=== PATIENT | female | born 1955 ===

== ENCOUNTER 2016-11-07 00:53 | Emergency (ER) | payer MEDICARE, OTHER ==
[2016-11-07 01:22] LABS: BASO # 0.1 K/uL (0.0-0.2); BASO % 0.5 % (0.0-2.0); EOS # 0.4 K/uL (0.0-0.7); EOS % 3.2 % (0.0-4.0); HEMATOCRIT 39.7 % (34.0-47.0); LYMPH # 6.5 K/uL (1.0-4.3); MEAN CELL VOLUME 90.2 fL (81.0-99.0); MEAN CORPUSCULAR HEMOGLOBIN 29.8 pg (27.0-31.0); MEAN PLATELET VOLUME 8.7 fL (7.2-11.7); MONO # 0.9 K/uL (0.0-0.8); MONO % 7.3 % (0.0-10.0); PLATELET COUNT 206 K/uL (130-400); RED CELL DISTRIBUTION WIDTH 13.4 % (11.5-14.5); WHITE BLOOD COUNT 12.7 K/uL (4.8-10.8)
[2016-11-07 01:44] LABS: CHLORIDE 110 mmol/L (98-107); SODIUM 143 mmol/L (132-148)
[2016-11-07 01:45] LABS: POTASSIUM 3.9 mmol/L (3.6-5.2)
[2016-11-07 01:47] LABS: ALB/GLOB RATIO 1.1 (1.0-2.1); ALKALINE PHOSPHATASE 72 U/L (38-126); ALT/SGPT 23 U/L (9-52); AST/SGOT 26 U/L (14-36); BILIRUBIN,TOTAL 0.6 mg/dL (0.2-1.3); BLOOD UREA NITROGEN 22 mg/dL (7-17); CALCIUM 9.3 mg/dl (8.6-10.4); CARBON DIOXIDE 24 mmol/L (22-30); GFR AFRICAN-AMERICAN > 60; GLUCOSE,RANDOM 127 mg/dL (65-105); TOTAL PROTEIN 7.7 g/dL (6.3-8.3)
[2016-11-07 01:55] LABS: EOSINOPHIL 3 % (0-4); NEUTROPHIL 35 % (50-75); REACTIVE LYMPHOCYTES 44 % (0-0); TOTAL CELLS COUNTED 100
[2016-11-07 04:01] VITALS: BP 131/75; PULSE 60; RESP 20; TEMP 97.6; O2SAT 100
--- NOTE | 2016-11-07 04:58 | C.PDOC ---
History Of Present Illness Patient is a 61 year old female who presents to the ER with a complaint of left sided weakness since approximately 23:30. Patient states her face was twisted at the time. Patient has a Hx of similar 1 year ago and a stroke was diagnosed at the time. Denies chest pain, SOB or slurred speech. Time Seen by Provider: 11/07/16 01:00 Chief Complaint (Nursing): Weakness/Neurological Deficit History Per: Patient History/Exam Limitations: no limitations Onset/Duration Of Symptoms: Hrs Current Symptoms Are (Timing): Still Present Activity At Onset Of Symptoms: Other (Not known) Seizure Or Post-ictal Symptoms: None Fall Associated With With Symptoms: No - Symptoms Of CVA Associated Symptoms: denies: Impaired Speech, Seizure Activity, New Vision Deficit(Left), New Vision Deficit(Right), Decreased Ability To Walk, New Confusion Character Of Deficits: Left: Weakness Recent Aspirin Use: Unknown Current Coumadin Use?: Unknown Recent Head Trauma: No Past Medical History Reviewed: Historical Data, Nursing Documentation, Vital Signs Vital Signs: Last Vital Signs Temp 97.6 F 11/07/16 03:45 Pulse 60 11/07/16 03:45 Resp 20 11/07/16 03:45 BP 131/75 11/07/16 03:45 Pulse Ox 100 11/07/16 06:32 - Medical History PMH: Anxiety, Depression, Diabetes, HTN, Hyperlipidemia, Malignancy (throat CA with chemo) Surgical History: Family History: States: Unknown Family Hx - Social History Hx Tobacco Use: No Hx Alcohol Use: No Hx Substance Use: No - Immunization History Hx Tetanus Toxoid Vaccination: No Hx Influenza Vaccination: Yes Hx Pneumococcal Vaccination: No Review Of Systems Cardiovascular: Negative for: Chest Pain Respiratory: Negative for: Shortness of Breath Neurological: Positive for: Weakness (Left sided). Negative for: Other ( Slurred speech) Physical Exam - Physical Exam Appears: Non-toxic, No Acute Distress Skin: Normal Color, Warm, Dry Head: Atraumatic, Normacephalic Eye(s): bilateral: Normal Inspection, PERRL, EOMI Oral Mucosa: Moist Chest: Symmetrical, No Tenderness Cardiovascular: Rhythm Regular, No Murmur Respiratory: Normal Breath Sounds, No Rales, No Rhonchi, No Wheezing Gastrointestinal/Abdominal: Soft, No Tenderness Neurological/Psych: Oriented x3, Normal Speech, Normal Cognition, Normal Motor, Normal Sensation, Other (Slight left facial droop) ED Course And Treatment - Laboratory Results Result Diagrams: 11/07/16 01:19 11/07/16 01:19 O2 Sat by Pulse Oximetry: 100 (room air) Pulse Ox Interpretation: Normal Progress Note: Head CT w/o contrast, EKG and CXR ordered. Aspirin administered. Against Medical Advice - AMA Patient Left Against Medical Advice: The patient declines admission to the hospital and wishes to leave the Emergency Department. This action is against my medical advice. This decision was made with informed refusal. The patient was told that admission to the hospital is necessary. Explanation of the reasons why were discussed. The risks of leaving were explained to the patient and include, but are not limited to, worsening of known or currently unknown conditions, permanent disability and from undiagnosed or untreated conditions. The patient has the capacity to make this informed decision and understands my explanation of the current medical problem and risks of leaving. The patient voluntarily accepts these risks and signed an AMA form documenting our conversation. The patient was given the opportunity to ask questions and reconsider. The patient was encouraged to return to the Emergency Department at any time for further care. NIHSS Stroke Scale - Date/Time Evaluation Performed When Was NIHSS Performed: Baseline - How Severe is the Stoke Level of Consciousness: 0=Alert LOC to Questions: 0=Both comments correct LOC to commands: 0=Obeys both correctly Best Gaze: 0=Normal Visual: 0=No visual loss Facial: 2=Partial (lower face paralysis) Motor Arm - Left: 0=No drift Motor Arm - Right: 0=No drift Motor Leg - Left: 0=No drift Motor Leg - Right: 0=No drift Limb Ataxia: 0=Absent Sensory: 0=Normal Best Language: 0=No aphasia Dysarthia: 0=Normal articulation Extinction & Inattention (Neglect): 0=Normal, no object Score: 2 Severity Of Stroke: 1-4= Minor Stroke rTPA Inclusion/Exclusion - Refusal of Treatment Patient Refused Treatment: No - Inclusion Criteria for Altepase Patient is 18 years or Older: Yes The Clinical Diagnosis of Ischemic Stroke That is Causing a Potentially Disabling Neurological Deficit: Yes Time of Onset is Well Established to be Less Than 270 Minute Before Treatment Would Begin: No Risk/Benefit Discussed With Patient/Family Member Present: No Disposition - Disposition Disposition: AGAINST MEDICAL ADVICE Disposition Time: 02:35 Condition: GUARDED - Clinical Impression Clinical Impression: Weakness, TIA (transient ischemic attack) - Scribe Statement The provider has reviewed the documentation as recorded by the Scribe Edison Cabral All medical record entries made by the Scribe were at my direction and personally dictated by me. I have reviewed the chart and agree that the record accurately reflects my personal performance of the history, physical exam, medical decision making, and the department course for this patient. I have also personally directed, reviewed, and agree with the discharge instructions and disposition.
--- NOTE | 2016-11-07 09:15 | CT ---
PROCEDURE: CT HEAD WITHOUT CONTRAST. HISTORY: r/o ICH COMPARISON: None available. TECHNIQUE: Axial computed tomography images were obtained through the head/brain without intravenous contrast. Radiation dose: Total exam DLP = 884.50 mGy-cm. This CT exam was performed using one or more of the following dose reduction techniques: Automated exposure control, adjustment of the mA and/or kV according to patient size, and/or use of iterative reconstruction technique. FINDINGS: HEMORRHAGE: No intracranial hemorrhage. BRAIN: [place]-white matter differentiation is preserved. There is no mass, mass effect or abnormal extra-axial fluid collection. VENTRICLES: The ventricles are normal in size, shape and configuration. CALVARIUM: There is no calvarial fracture or extracranial soft tissue swelling. PARANASAL SINUSES: There is moderate scattered mucoperiosteal thickening in the ethmoid air cells, mild mucosal thickening in the right inferior frontal sinus and aerosolized secretions in the right sphenoid chamber. MASTOID AIR CELLS: Unremarkable as visualized. No inflammatory changes. OTHER FINDINGS: None. IMPRESSION: No acute intracranial abnormality. A preliminary report was provided by [facility].
--- NOTE | 2016-11-07 10:06 | RAD ---
PROCEDURE: CHEST RADIOGRAPH, 1 VIEW HISTORY: r/o infiltrate COMPARISON: 12/01/2015. FINDINGS: LUNGS: The lungs are well inflated and clear. PLEURA: No pneumothorax or pleural fluid seen. CARDIOVASCULAR: Normal. OSSEOUS STRUCTURES: No significant abnormalities. VISUALIZED UPPER ABDOMEN: Normal. OTHER FINDINGS: None. IMPRESSION: No active pulmonary disease.
--- NOTE | 2016-11-10 21:36 | CARD ---
APPROVED REPORT EKG Measurement Heart [id number] MD [id number] <Conclusion> Normal sinus rhythm Normal ECG
== END 2016-11-07 04:01 | disposition left against medical advice (07) ==
LOC: C.ER 00:53 → C.6T 03:12 → UNDOADMIN 03:12 → UNDODISIN 04:00
DX: G45.9 Transient cerebral ischemic attack, unspecified (principal); R53.1 Weakness; I10 Essential (primary) hypertension; E11.9 Type 2 diabetes mellitus without complications; E78.5 Hyperlipidemia, unspecified

== ENCOUNTER 2016-12-03 13:33 | Inpatient (IN) | payer MEDICARE, OTHER ==
[2016-12-03] MEDS ORDERED: Sodium Chloride 0.9% 500 ML IV ONE ×2 (13:48→14:11)
--- NOTE | 2016-12-03 13:49 | C.PDOC ---
History Of Present Illness 61 yr old female with PMHx of diabetes, HTN, hyperlipidemia and previous stroke , brought in via BLS, presents to the ER with sudden onset of dizziness, weakness and slurred speech since 8am this morning. Patient states she was evaluated 1 month ago for similar symptoms but signed out AMA. Denies fever, pain or LOC. Time Seen by Provider: 12/03/16 13:41 Chief Complaint (Nursing): Weakness/Neurological Deficit History Per: Patient History/Exam Limitations: no limitations Onset/Duration Of Symptoms: Sudden Onset (Since 8am this morning ) Past Medical History Reviewed: Historical Data, Nursing Documentation, Vital Signs Vital Signs: Last Vital Signs Temp 98.0 F 12/04/16 07:52 Pulse 54 L 12/04/16 07:52 Resp 20 12/04/16 07:52 BP 114/63 12/04/16 07:52 Pulse Ox 99 12/04/16 07:52 - Medical History PMH: Anxiety, Depression, Diabetes, HTN, Hyperlipidemia, Malignancy (throat CA with chemo) Surgical History: Family History: States: No Known Family Hx - Social History Hx Tobacco Use: No Hx Alcohol Use: No Hx Substance Use: No - Immunization History Hx Tetanus Toxoid Vaccination: No Hx Influenza Vaccination: Yes Hx Pneumococcal Vaccination: No Review Of Systems Except As Marked, All Systems Reviewed And Found Negative. Constitutional: Positive for: Weakness, Other ((+) Slurred Speech ). Negative for: Fever Respiratory: Negative for: Shortness of Breath Neurological: Positive for: Dizziness Physical Exam - Physical Exam Appears: Non-toxic, No Acute Distress Skin: Warm, Dry, No Rash Head: Atraumatic, Normacephalic Eye(s): bilateral: Normal Inspection, PERRL, EOMI Oral Mucosa: Moist Neck: Normal, Normal ROM, Supple Chest: Symmetrical, No Tenderness Cardiovascular: Rhythm Regular, No Murmur Respiratory: Normal Breath Sounds, No Rales, No Rhonchi, No Stridor, No Wheezing Extremity: Normal ROM, No Swelling ED Course And Treatment - Laboratory Results Result Diagrams: 12/04/16 07:42 12/04/16 07:42 ECG: Interpreted By Me, Viewed By Me ECG Rhythm: Sinus Bradycardia ECG Interpretation: Normal Rate From EC (BPM) - Other Rad CXR X-Ray: Viewed By Me, Read By Radiologist Interpretation: PROCEDURE: CHEST RADIOGRAPH, 1 VIEW. HISTORY: chest pain. COMPARISON: FINDINGS: LUNGS: Poor inspiration with low lung volumes, minor crowded bronchovascular markings and mild bibasilar atelectasis. PLEURA: No apparent pneumothorax. No effusion. CARDIOVASCULAR: Heart size is upper limits of normal. OSSEOUS STRUCTURES: Minor multilevel degenerative spondylosis of the thoracic spine. VISUALIZED UPPER ABDOMEN: Normal. OTHER FINDINGS: None. IMPRESSION: Poor inspiration with low lung volumes, minor crowded bronchovascular markings and mild bibasilar atelectasis. - CT Scan/US CT - Head Other Rad Studies (CT/US): Read By Radiologist, Radiology Report Reviewed CT/US Interpretation: PROCEDURE: CT scan brain dated 12/03/2016. HISTORY: Code Stroke. COMPARISON: Comparison made with prior CT scan of the brain dated 11/07/2016 comparison also made with the prior MRA of the brain dated 03/2016. TECHNIQUE: Axial computed tomography images were obtained through the head/brain without intravenous contrast. Radiation dose: Total exam DLP = 861.51 mGy-cm. This CT exam was performed using one or more of the following dose reduction techniques: Automated exposure control, adjustment of the mA and/ or kV according to patient size, and/or use of iterative reconstruction technique. FINDINGS: HEMORRHAGE: No acute parenchymal, subarachnoid or extra- axial intracranial hemorrhage. BRAIN: No evidence of large acute infarct. . 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 VENTRICLES: Unremarkable. No hydrocephalus. CALVARIUM: Unremarkable. PARANASAL SINUSES: Unremarkable as visualized. No significant inflammatory changes. MASTOID AIR CELLS: Unremarkable as visualized. No inflammatory changes. OTHER FINDINGS: None. IMPRESSION: No acute intracranial hemorrhage. Previously noted small in the ideally wing other anterior communicating artery aneurysm is not appreciated on this exam. Note that these findings were discussed with Dr. Salcedo at approximately 220 p.m. with written down and read back verification. NIHSS Stroke Scale - Date/Time Evaluation Performed Date Performed: 12/03/16 Time Performed: 16:18 - How Severe is the Stoke Level of Consciousness: 0=Alert LOC to Questions: 0=Both comments correct LOC to commands: 0=Obeys both correctly Best Gaze: 0=Normal Visual: 0=No visual loss Facial: 1=Minor asymmetry Motor Arm - Left: 0=No drift Motor Arm - Right: 0=No drift Motor Leg - Left: 0=No drift Motor Leg - Right: 0=No drift Limb Ataxia: 0=Absent Sensory: 0=Normal Best Language: 1=Mild to moderate aphasia Dysarthia: 0=Normal articulation Extinction & Inattention (Neglect): 0=Normal, no object Score: 2 Severity Of Stroke: 1-4= Minor Stroke rTPA Inclusion/Exclusion - Refusal of Treatment Patient Refused Treatment: No - Inclusion Criteria for Altepase Patient is 18 years or Older: Yes The Clinical Diagnosis of Ischemic Stroke That is Causing a Potentially Disabling Neurological Deficit: No Time of Onset is Well Established to be Less Than 270 Minute Before Treatment Would Begin: No Risk/Benefit Discussed With Patient/Family Member Present: Yes - Exclusion Criteria for Altepase Uncontrolled Hypertension at Time of Treatment (Systolic BP above 185 or Diastolic BP above 110 mmHg): No History of: Brain Aneurysm Medical Decision Making Medical Decision Making: code stroke- PLAN: * CT - Head * CXR * EKG * Troponin * CBC * CMP * Urinalysis * Sodium Chloride IV * * 400: labs initially unremarkable. head ct neg. pt took asa today. case discussed with dr ragland. advises dose plavix. not tpa candidate. given close to 6 hr onset, h/o of aneursym, low nih. pt at first mildy hypotensive. map 55-60. la added. pt emprically covered. bedside us shows no pericardial effusion, no aaa. fluids given. pt responded to fluids. discussed with icu, requested ivf, albumin. as pt now hemodynamically stable, will place on tele. Disposition - Disposition Disposition: HOSPITALIZED Disposition Time: 05:00 Condition: STABLE - Clinical Impression Clinical Impression: Weakness, Dizziness - Scribe Statement The provider has reviewed the documentation as recorded by the Rosarioibmarjorie Perez Provider Attestation: All medical record entries made by the Saleem were at my direction and personally dictated by me. I have reviewed the chart and agree that the record accurately reflects my personal performance of the history, physical exam, medical decision making, and the department course for this patient. I have also personally directed, reviewed, and agree with the discharge instructions and disposition. Decision To Admit - Pt Status Changed To: Hospital Disposition Of: Inpatient - Admit Certification Admit to Inpatient:: After my assessment, the patient will require hospitalization for at least two midnights. This is because of the severity of symptoms shown, intensity of services needed, and/or the medical risk in this patient being treated as an outpatient. - InPatient: Physician Admission Certification: I certify that this patient requires 2 or more midnights of care for the following reason:: pt with r/o cva. - . Bed Request Type: Telemetry Admitting Physician: Sarina Smith Patient Diagnosis: Weakness, Dizziness
[2016-12-03 14:01] LABS: BASO # 0.1 K/uL (0.0-0.2); BASO % 0.7 % (0.0-2.0); EOS # 0.3 K/uL (0.0-0.7); EOS % 2.9 % (0.0-4.0); HEMOGLOBIN 13.1 g/dL (11.0-16.0); LYMPH # 3.3 K/uL (1.0-4.3); LYMPH % 33.3 % (20.0-40.0); MEAN CELL VOLUME 90.4 fL (81.0-99.0); MEAN CORPUSCULAR HEMOGLOBIN 29.6 pg (27.0-31.0); MEAN CORPUSCULAR HGB CONC 32.8 g/dL (33.0-37.0); MEAN PLATELET VOLUME 8.5 fL (7.2-11.7); MONO # 0.6 K/uL (0.0-0.8); MONO % 5.5 % (0.0-10.0); NEUT # 5.7 K/uL (1.8-7.0); NEUT % 57.6 % (50.0-75.0); RBC 4.43 Mil/uL (3.80-5.20); RED CELL DISTRIBUTION WIDTH 12.9 % (11.5-14.5)
[2016-12-03 14:07] LABS: INR 1.1; PROTHROMBIN TIME 11.9 SECONDS (9.7-12.2)
[2016-12-03 14:10] LABS: ALB/GLOB RATIO 1.1 (1.0-2.1); AST/SGOT 28 U/L (14-36); BLOOD UREA NITROGEN 24 mg/dL (7-17); GFR AFRICAN-AMERICAN > 60; GFR NON-AFRICAN AMERICAN 57
[2016-12-03 14:11] LABS: ALT/SGPT 43 U/L (9-52); CALCIUM 8.9 mg/dl (8.6-10.4); HDL CHOLESTEROL 43 mg/dL (30-70)
[2016-12-03 14:22] LABS: LDL CHOLESTEROL 68 mg/dL (0-129)
--- NOTE | 2016-12-03 14:28 | CT ---
PROCEDURE: CT scan brain dated 12/03/2016 HISTORY: Code Stroke COMPARISON: Comparison made with prior CT scan of the brain dated 11/07/2016 comparison also made with the prior MRA of the brain dated 12/02/2015. TECHNIQUE: Axial computed tomography images were obtained through the head/brain without intravenous contrast. Radiation dose: Total exam DLP = 861.51 mGy-cm. This CT exam was performed using one or more of the following dose reduction techniques: Automated exposure control, adjustment of the mA and/or kV according to patient size, and/or use of iterative reconstruction technique. FINDINGS: HEMORRHAGE: No acute parenchymal, subarachnoid or extra-axial intracranial hemorrhage. BRAIN: No evidence of large acute infarct. . 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 VENTRICLES: Unremarkable. No hydrocephalus. CALVARIUM: Unremarkable. PARANASAL SINUSES: Unremarkable as visualized. No significant inflammatory changes. MASTOID AIR CELLS: Unremarkable as visualized. No inflammatory changes. OTHER FINDINGS: None. IMPRESSION: No acute intracranial hemorrhage. 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 Salcedo at approximately 220 p.m. with written down and read back verification.
[2016-12-03] MEDS ORDERED: Sodium Chloride 0.9% 1,000 ML IV ONE (14:34)
[2016-12-03] MEDS ORDERED: Sodium Chloride 0.9% 1,000 ML ONE (14:38)
[2016-12-03] MEDS ORDERED: Piperacillin/Tazobact 3.375 gm 100 ML IVPB STA (14:40)
[2016-12-03] MEDS ORDERED: Vancomycin 1 GM 1 GM/250 ML BAG IVPB ONE (16:00)
--- NOTE | 2016-12-03 16:08 | RAD ---
PROCEDURE: CHEST RADIOGRAPH, 1 VIEW HISTORY: chest pain COMPARISON: FINDINGS: LUNGS: Poor inspiration with low lung volumes, minor crowded bronchovascular markings and mild bibasilar atelectasis. PLEURA: No apparent pneumothorax. No effusion. CARDIOVASCULAR: Heart size is upper limits of normal. OSSEOUS STRUCTURES: Minor multilevel degenerative spondylosis of the thoracic spine VISUALIZED UPPER ABDOMEN: Normal. OTHER FINDINGS: None. IMPRESSION: Poor inspiration with low lung volumes, minor crowded bronchovascular markings and mild bibasilar atelectasis.
[2016-12-03 16:12] LABS: VENOUS BLOOD GAS BASE EXCESS 1.8 mmol/L (0.0-2.0); VENOUS BLOOD GAS PCO2 53 mmHg (40-60); VENOUS BLOOD GAS PO2 24 mm/Hg (30-55); VENOUS BLOOD PH 7.34 (7.32-7.43)
[2016-12-03 16:29] LABS: SQUAMOUS EPITHIAL 14 /hpf (0-5); URINE BACTERIA OCC (<OCC); URINE BILIRUBIN NEGATIVE (NEGATIVE); URINE BLOOD NEGATIVE (NEGATIVE); URINE CLARITY Hazy (Clear); URINE COLOR Yellow (YELLOW); URINE GLUCOSE (UA) NORMAL (Normal); URINE LEUKOCYTE ESTERASE TRACE Leu/uL (Negative); URINE NITRATE NEGATIVE (NEGATIVE); URINE PROTEIN NEGATIVE (NEGATIVE); URINE UROBILINOGEN NORMAL mg/dL (0.2-1.0)
[2016-12-03] MEDS ORDERED: Albuterol HFA 90 mcg/actuation (8 g) INH PRN (19:36)
[2016-12-03] MEDS ORDERED: Oxycodone/Acetaminophen 5/325 mg Tab PO PRN (19:43)
[2016-12-03] MEDS: Promethazine DM 6.25 mg-15 mg/5 ml Syrup PO PRN (22:09)
[2016-12-04 07:54] LABS: BASO % 0.3 % (0.0-2.0); EOS # 0.3 K/uL (0.0-0.7); EOS % 3.6 % (0.0-4.0); HEMOGLOBIN 12.9 g/dL (11.0-16.0); LYMPH # 4.1 K/uL (1.0-4.3); LYMPH % 42.6 % (20.0-40.0); MEAN CELL VOLUME 90.2 fL (81.0-99.0); MEAN CORPUSCULAR HEMOGLOBIN 29.7 pg (27.0-31.0); MEAN CORPUSCULAR HGB CONC 32.9 g/dL (33.0-37.0); MEAN PLATELET VOLUME 8.8 fL (7.2-11.7); MONO # 0.5 K/uL (0.0-0.8); MONO % 5.8 % (0.0-10.0); NEUT # 4.5 K/uL (1.8-7.0); NEUT % 47.7 % (50.0-75.0); RBC 4.34 Mil/uL (3.80-5.20); RED CELL DISTRIBUTION WIDTH 13.2 % (11.5-14.5); WHITE BLOOD COUNT 9.5 K/uL (4.8-10.8)
[2016-12-04 08:23] LABS: ALBUMIN 3.7 g/dL (3.5-5.0)
[2016-12-04 08:26] LABS: AST/SGOT 22 U/L (14-36); BLOOD UREA NITROGEN 22 mg/dL (7-17); GFR AFRICAN-AMERICAN > 60; GFR NON-AFRICAN AMERICAN > 60
[2016-12-04 08:27] LABS: ALT/SGPT 36 U/L (9-52); HDL CHOLESTEROL 41 mg/dL (30-70)
[2016-12-04 08:38] LABS: LDL CHOLESTEROL 66 mg/dL (0-129)
[2016-12-04 09:08] LABS: PROLACTIN 14.6 ng/mL (3.0-18.9)
[2016-12-04 09:40] LABS: FOLATE 4.8 ng/mL
--- NOTE | 2016-12-04 09:40 | CP.PCM.HP ---
Past Patient History - Infectious Disease Hx of Infectious Diseases: None - Past Medical History & Family History Past Medical History?: Yes - Past Social History Smoking Status: Never Smoked - CARDIAC Hx Hypertension: Yes - PULMONARY Hx Respiratory Disorders: No - NEUROLOGICAL Hx Neurological Disorder: Yes HX Cerebrovascular Accident: Yes (2015) Other/Comment: brain aneurysm - HEENT Hx HEENT Problems: Yes Other/Comment: hx of throat ca - RENAL Hx Chronic Kidney Disease: No - ENDOCRINE/METABOLIC Hx Diabetes Mellitus Type 2: Yes - HEMATOLOGICAL/ONCOLOGICAL Hx Blood Disorders: Yes Hx Cancer: Yes (THROAT CA) - INTEGUMENTARY Hx Dermatological Problems: No - MUSCULOSKELETAL/RHEUMATOLOGICAL Hx Musculoskeletal Disorders: No Hx Falls: Yes - GASTROINTESTINAL Hx Gastrointestinal Disorders: No - GENITOURINARY/GYNECOLOGICAL Hx Genitourinary Disorders: No - PSYCHIATRIC Hx Anxiety: Yes Hx Depression: Yes Hx Substance Use: No - SURGICAL HISTORY Hx Surgeries: Yes Hx Section: Yes (2x) - ANESTHESIA Hx Anesthesia: Yes Hx Anesthesia Reactions: No Hx Malignant Hyperthermia: No Has any member of the family had a problem w/ anesthesia?: No Meds Allergies/Adverse Reactions: Allergies Allergy/AdvReac Type Severity Reaction Status Date / Time No Known Allergies Allergy Verified 12/03/16 13:47 Physical Exam - Constitutional Appears: Well - Head Exam Head Exam: ATRAUMATIC, NORMAL INSPECTION, NORMOCEPHALIC - Eye Exam Eye Exam: EOMI, Normal appearance, PERRL Pupil Exam: NORMAL ACCOMODATION, PERRL - ENT Exam ENT Exam: Mucous Membranes Moist, Normal Exam - Neck Exam Neck exam: Positive for: Normal Inspection - Respiratory Exam Respiratory Exam: Decreased Breath Sounds - Cardiovascular Exam Cardiovascular Exam: REGULAR RHYTHM, +S1, +S2 - GI/Abdominal Exam GI & Abdominal Exam: Diminished Bowel Sounds, Soft - Rectal Exam Rectal Exam: Deferred Results - Vital Signs Recent Vital Signs: Last Vital Signs Temp 98.0 F 12/04/16 07:52 Pulse 54 L 12/04/16 07:52 Resp 20 12/04/16 07:52 BP 114/63 12/04/16 07:52 Pulse Ox 99 12/04/16 07:52 - Labs Result Diagrams: 12/04/16 07:42 12/04/16 07:42 Labs: Laboratory Results - last 24 hr 12/03/16 12/04/16 12/04/16 21:00 06:26 07:42 WBC RBC Hgb Hct MCV MCH MCHC RDW Plt Count MPV Neut % (Auto) Lymph % (Auto) Weld % (Auto) Eos % (Auto) Baso % (Auto) Neut # Lymph # Weld # Eos # Baso # ESR Sodium Potassium Chloride Carbon Dioxide Anion Gap BUN Creatinine Est GFR ( Amer) Est GFR (Non-Af Amer) POC Glucose (mg/dL) 155 H 96 Random Glucose Calcium Total Bilirubin AST ALT Alkaline Phosphatase C-React Prot High Sens Total Protein Albumin Globulin Albumin/Globulin Ratio Triglycerides Cholesterol LDL Cholesterol Direct HDL Cholesterol Vitamin B12 > 1000 H TSH 3rd Generation Prolactin 12/04/16 12/04/16 12/04/16 07:42 07:42 07:42 WBC 9.5 RBC 4.34 Hgb 12.9 Hct 39.2 MCV 90.2 MCH 29.7 MCHC 32.9 L RDW 13.2 Plt Count 226 MPV 8.8 Neut % (Auto) 47.7 L Lymph % (Auto) 42.6 H Weld % (Auto) 5.8 Eos % (Auto) 3.6 Baso % (Auto) 0.3 Neut # 4.5 Lymph # 4.1 Weld # 0.5 Eos # 0.3 Baso # 0.0 ESR 28 H Sodium 140 Potassium 4.0 Chloride 100 Carbon Dioxide 28 Anion Gap 16 BUN 22 H Creatinine 0.8 Est GFR ( Amer) > 60 Est GFR (Non-Af Amer) > 60 POC Glucose (mg/dL) Random Glucose 101 Calcium 9.0 Total Bilirubin 0.5 AST 22 ALT 36 Alkaline Phosphatase 85 C-React Prot High Sens 3.83 H Total Protein 7.3 Albumin 3.7 Globulin 3.6 Albumin/Globulin Ratio 1.0 Triglycerides 99 Cholesterol 138 LDL Cholesterol Direct 66 HDL Cholesterol 41 Vitamin B12 > 1000 H TSH 3rd Generation 1.41 Prolactin 14.6
--- NOTE | 2016-12-04 09:44 | CP.PCM.CON ---
History of Present Illness - History of Present Illness History of Present Illness: PGY2 Cardio consult note for Dr. De La Rosa 61 yo female with PMHx of HTN, HLD, DM, stroke x2 in 2015 and 2016, and brain aneurysm who presented to ED 12/03 around noon following episode of weakness and dizziness that started suddenly while walking. She called for an ambulance and recalls that "my pressure was 80 when they arrived." Associated symptoms during the episode include sweating, palpitations, chest discomfort/pressure, mild dyspnea on exertion, and weakness in the left arm and leg worse than baseline. Patient denies headache, LOC, fever, chills, nausea, vomiting, diarrhea, abdominal pain. Additionally she states that her meds were recently adjusted by her PMD's but she is unable to recall the exact adjustments. She reports compliance with her medications and takes them as scheduled. PMD: Cecille Cat MD PMHx: HTN, hypercholesterolemia, DM (controlled @~98 at home), stroke (November 2016 & October 2015), brain aneurysm (3cm for last 5 yrs) PSurgHx: (x2) Meds: - Amlodipine 10 mg PO daily - ASA 81 mg PO daily - Carvedilol 12.5 mg PO bid - Plavix 75 mg PO daily - Lovenox 40 mg SC daily - Losartan 25 mg PO daily - Crestor 10 mg PO hs Allergies: NKDA FamHx: none as per patient SocHx: denies tobacco and caffeine use, alcohol only on special occasions; lives at home with children and parents Review of Systems - Constitutional Constitutional: Weakness - EENT Eyes: absent: Change in Vision - Cardiovascular Cardiovascular: Chest Pain, Chest Pain with Activity, Dyspnea, Dyspnea on Exertion, Lightheadedness, Palpitations - Respiratory Respiratory: As Per HPI, Dyspnea on Exertion - Gastrointestinal Gastrointestinal: absent: Abdominal Pain - Neurological Neurological: Weakness Additional comments: felt near syncope Past Patient History - Infectious Disease Hx of Infectious Diseases: None - Past Medical History & Family History Past Medical History?: Yes - Past Social History Smoking Status: Never Smoked - CARDIAC Hx Hypertension: Yes - PULMONARY Hx Respiratory Disorders: No - NEUROLOGICAL Hx Neurological Disorder: Yes HX Cerebrovascular Accident: Yes (2015 and 2016) Other/Comment: brain aneurysm - HEENT Hx HEENT Problems: Yes Other/Comment: hx of throat ca - RENAL Hx Chronic Kidney Disease: No - ENDOCRINE/METABOLIC Hx Diabetes Mellitus Type 2: Yes - HEMATOLOGICAL/ONCOLOGICAL Hx Blood Disorders: Yes Hx Cancer: Yes (THROAT CA) - INTEGUMENTARY Hx Dermatological Problems: No - MUSCULOSKELETAL/RHEUMATOLOGICAL Hx Musculoskeletal Disorders: No Hx Falls: Yes - GASTROINTESTINAL Hx Gastrointestinal Disorders: No - GENITOURINARY/GYNECOLOGICAL Hx Genitourinary Disorders: No - PSYCHIATRIC Hx Anxiety: Yes Hx Depression: Yes Hx Substance Use: No - SURGICAL HISTORY Hx Surgeries: Yes Hx Section: Yes (2x) - ANESTHESIA Hx Anesthesia: Yes Hx Anesthesia Reactions: No Hx Malignant Hyperthermia: No Has any member of the family had a problem w/ anesthesia?: No Meds Allergies/Adverse Reactions: Allergies Allergy/AdvReac Type Severity Reaction Status Date / Time No Known Allergies Allergy Verified 12/03/16 13:47 - Medications Medications: Current Medications Albuterol (Ventolin Hfa 90 Mcg/Actuation (8 G)) 2 puff INH RQ6 PRN PRN Reason: Shortness of Breath Amlodipine Besylate (Norvasc) 10 mg PO DAILY [facility] Aspirin (Aspirin Chewable) 81 mg PO DAILY [facility] Carvedilol (Coreg) 12.5 mg PO BID [facility] Clopidogrel Bisulfate (Plavix) 75 mg PO DAILY [facility] Enoxaparin Sodium (Lovenox) 40 mg SC DAILY [facility] Famotidine (Pepcid) 20 mg PO BID [facility] Glipizide (Glucotrol) 5 mg PO BID [facility] Losartan Potassium (Cozaar) 25 mg PO DAILY [facility] Metformin HCl (Glucophage) 1,000 mg PO BID [facility] Oxycodone/Acetaminophen (Percocet 5/325 Mg Tab) 2 tab PO Q6H PRN PRN Reason: Pain, severe (8-10) Stop: 12/06/16 19:44 Promethazine HCl/Dextromethorphan (Phenergan Dm Syrup) 5 ml PO Q6H PRN PRN Reason: Cough Last Admin: 12/03/16 22:09 Dose: 5 ml Rosuvastatin Calcium (Crestor) 10 mg PO HS [facility] Last Admin: 12/03/16 22:08 Dose: 10 mg Zolpidem Tartrate (Ambien) 5 mg PO HS PRN PRN Reason: Insomnia Last Admin: 12/03/16 22:08 Dose: 5 mg Physical Exam - Constitutional Appears: No Acute Distress - Head Exam Head Exam: ATRAUMATIC - Eye Exam Eye Exam: EOMI, Normal appearance - ENT Exam ENT Exam: Mucous Membranes Moist - Respiratory Exam Respiratory Exam: Clear to Auscultation Bilateral, NORMAL BREATHING PATTERN - Cardiovascular Exam Cardiovascular Exam: REGULAR RHYTHM, +S1, +S2 - Extremities Exam Extremities exam: Positive for: normal inspection. Negative for: pedal edema - Neurological Exam Neurological exam: Alert, Oriented x3 Results - Vital Signs Recent Vital Signs: Last Vital Signs Temp 98.0 F 12/04/16 07:52 Pulse 54 L 12/04/16 07:52 Resp 20 12/04/16 07:52 BP 114/63 12/04/16 07:52 Pulse Ox 99 12/04/16 07:52 - Labs Result Diagrams: 12/04/16 07:42 12/04/16 07:42 Labs: Laboratory Results - last 24 hr 12/03/16 12/04/16 12/04/16 21:00 06:26 07:42 WBC RBC Hgb Hct MCV MCH MCHC RDW Plt Count MPV Neut % (Auto) Lymph % (Auto) Moore % (Auto) Eos % (Auto) Baso % (Auto) Neut # Lymph # Moore # Eos # Baso # ESR Sodium Potassium Chloride Carbon Dioxide Anion Gap BUN Creatinine Est GFR ( Amer) Est GFR (Non-Af Amer) POC Glucose (mg/dL) 155 H 96 Random Glucose Calcium Total Bilirubin AST ALT Alkaline Phosphatase C-React Prot High Sens Total Protein Albumin Globulin Albumin/Globulin Ratio Triglycerides Cholesterol LDL Cholesterol Direct HDL Cholesterol Vitamin B12 > 1000 H TSH 3rd Generation Prolactin 12/04/16 12/04/16 12/04/16 07:42 07:42 07:42 WBC 9.5 RBC 4.34 Hgb 12.9 Hct 39.2 MCV 90.2 MCH 29.7 MCHC 32.9 L RDW 13.2 Plt Count 226 MPV 8.8 Neut % (Auto) 47.7 L Lymph % (Auto) 42.6 H Moore % (Auto) 5.8 Eos % (Auto) 3.6 Baso % (Auto) 0.3 Neut # 4.5 Lymph # 4.1 Moore # 0.5 Eos # 0.3 Baso # 0.0 ESR 28 H Sodium 140 Potassium 4.0 Chloride 100 Carbon Dioxide 28 Anion Gap 16 BUN 22 H Creatinine 0.8 Est GFR ( Amer) > 60 Est GFR (Non-Af Amer) > 60 POC Glucose (mg/dL) Random Glucose 101 Calcium 9.0 Total Bilirubin 0.5 AST 22 ALT 36 Alkaline Phosphatase 85 C-React Prot High Sens 3.83 H Total Protein 7.3 Albumin 3.7 Globulin 3.6 Albumin/Globulin Ratio 1.0 Triglycerides 99 Cholesterol 138 LDL Cholesterol Direct 66 HDL Cholesterol 41 Vitamin B12 > 1000 H TSH 3rd Generation 1.41 Prolactin 14.6 Assessment & Plan - Assessment and Plan (Free Text) Assessment: 61 yo female with PMHx of HTN, HLD, DM, stroke x2 in 2016 and 2017, and brain aneurysm presenting following episode of weakness, dizziness, near syncope Plan: Bradycardia-Symptomatic ECG done confirming bradycardia with otherwise normal ECG This is likely due to medication adjustment to pt's Coreg. She is currently taking 12.5mg PO BID. Recommending decreasing of Coreg to 6.25mg PO BID. case discussed with Dr. De La Rosa
--- NOTE | 2016-12-04 10:08 | CP.PCM.PN ---
Subjective - Date & Time of Evaluation Date of Evaluation: 12/04/16 Time of Evaluation: 07:45 - Subjective Subjective: PGY 3 Medicine Progress Note- Dr. Andrew Smith's Service: Patient seen and examined at bedside this AM. 61 year old female with PMHx of CVA X2, DM, HTN, HLD, brain aneurysm and throat cancer presented to the ED yesterday for complaints of generalized weakness, left sided focal weakness, dizziness, slurred speech, chest pain, diaphoresis. Blood pressure was low once ambulance arrived. She presented to the ED 1 month ago for similar symptoms, but left AMA. This AM, patient reports she is feeling well. She states symptoms have resolved since yesterday. She has been ambulating back and forth from the bathroom without difficulty. No other complaints at this time. Patient states she wants to go home. Admits her meds were recently adjusted by her PMD, but is not sure what she is taking. Patient's PMD is Dr. Emory Oden Objective - Vital Signs/Intake and Output Vital Signs (last 24 hours): Temp Pulse Resp BP Pulse Ox 98.0 F 54 L 20 114/63 99 12/04/16 07:52 12/04/16 07:52 12/04/16 07:52 12/04/16 07:52 12/04/16 07:52 - Medications Medications: Current Medications Albuterol (Ventolin Hfa 90 Mcg/Actuation (8 G)) 2 puff INH RQ6 PRN PRN Reason: Shortness of Breath Amlodipine Besylate (Norvasc) 10 mg PO DAILY [facility] Aspirin (Aspirin Chewable) 81 mg PO DAILY [facility] Carvedilol (Coreg) 12.5 mg PO BID [facility] Clopidogrel Bisulfate (Plavix) 75 mg PO DAILY [facility] Enoxaparin Sodium (Lovenox) 40 mg SC DAILY [facility] Famotidine (Pepcid) 20 mg PO BID [facility] Glipizide (Glucotrol) 5 mg PO BID [facility] Losartan Potassium (Cozaar) 25 mg PO DAILY [facility] Metformin HCl (Glucophage) 1,000 mg PO BID [facility] Oxycodone/Acetaminophen (Percocet 5/325 Mg Tab) 2 tab PO Q6H PRN PRN Reason: Pain, severe (8-10) Stop: 12/06/16 19:44 Promethazine HCl/Dextromethorphan (Phenergan Dm Syrup) 5 ml PO Q6H PRN PRN Reason: Cough Last Admin: 12/03/16 22:09 Dose: 5 ml Rosuvastatin Calcium (Crestor) 10 mg PO HS [facility] Last Admin: 12/03/16 22:08 Dose: 10 mg Zolpidem Tartrate (Ambien) 5 mg PO HS PRN PRN Reason: Insomnia Last Admin: 12/03/16 22:08 Dose: 5 mg - Labs Labs: 12/04/16 07:42 12/04/16 07:42 PT 11.9 SECONDS (9.7-12.2) 12/03/16 13:54 INR 1.1 12/03/16 13:54 APTT 28 SECONDS (21-34) 12/03/16 13:54 - Constitutional Appears: No Acute Distress - Head Exam Head Exam: NORMAL INSPECTION, NORMOCEPHALIC - Eye Exam Eye Exam: EOMI, Normal appearance - ENT Exam ENT Exam: Mucous Membranes Moist - Neck Exam Neck Exam: Full ROM, Normal Inspection - Respiratory Exam Respiratory Exam: Clear to Ausculation Bilateral, NORMAL BREATHING PATTERN - Cardiovascular Exam Cardiovascular Exam: REGULAR RHYTHM, +S1, +S2 - GI/Abdominal Exam GI & Abdominal Exam: Soft. absent: Distended, Tenderness - Extremities Exam Extremities Exam: Full ROM, Normal Inspection - Back Exam Back Exam: NORMAL INSPECTION - Neurological Exam Neurological Exam: Alert, Awake, CN II-XII Intact, Oriented x3 - Psychiatric Exam Psychiatric exam: Normal Affect, Normal Mood - Skin Skin Exam: Normal Color, Warm Assessment and Plan - Assessment and Plan (Free Text) Assessment: 1) Weakness Possible with TIA. Patient with history of CVA X2 Head CT in the ED showed no IC bleed Neuro consult placed-Dr. Sharma- kumar appreciated Patient not a candidate for TPA on admission as per neuro. Plavix started. TSH withi normal limits Prolactin 4,7 FLP within normal limits: TG 88, Chol 137, LDL 68, HDL 43 f/u MRI ordered for today f/u carotid dopplers f/u EEG Patient with Bradycardia with HR in the low 50's and hypotension on arrival of EMS. Cardio consult was placed- Dr. De La Rosa- kumar appreciated Recommend decreasing Coreg 12.5 mg PO BID to Coreg 6.25 mg PO BID Status: Acute (2) Chest Pain Cardio Consult placed- Dr. De La Rosa- kumar appreciated EKG 12/03/16 showed NSR 55 bpm Chest X-ray: shows mild atelectasis BRIELLE on admission negative f/u BRIELLE #2 this AM Patient with Bradycardia with HR in the low 50's and hypotension on arrival of EMS. Cardio consult was placed- Dr. De La Rosa- kumar appreciated Recommend decreasing Coreg 12.5 mg PO BID to Coreg 6.25 mg PO BID Status: Acute (3) Hx of CVA Neuro consult placed-Dr. Sharma- kumar appreciated Workup as above. Patient not a candidate for TPA as per neuro. Plavix started. Continue: * Aspirin 81 mg PO daily * Plavix 75 mg PO daily * Crestor 10 mg PO HS * Coreg 12.5 mg PO BID Status: Chronic (5) Hypertension She recently had adjustment of medications done as outpatient. Patient with Bradycardia with HR in the low 50's and hypotension on arrival of EMS. As per Cardio: * D/C Coreg 12.5 mg PO BID. Start Coreg 6.25 mg PO BID * Norvasc 10 mg PO daily * Cozaar 25 mg PO daily Status: Chronic (6) Diabetes mellitus Hgb A1C 6.8 Glipizide 5 mg PO BID Metformin 1000 mg PO BID Status: Chronic (7)Hx of brain aneurysm Head CT in the ED showed no IC bleed BP control (8) Prophylactic Measure Lovenox 40 Sc daily Pepcid 20 mg PO BID All management as per Dr. Andrew Smith.
--- NOTE | 2016-12-04 11:08 | CARD ---
APPROVED REPORT EKG Measurement Heart [id number] [place] [id number] <Conclusion> Sinus bradycardia Otherwise normal ECG
[2016-12-04] MEDS: Enoxaparin 40 mg Syringe SC SCH (11:49)
[2016-12-04] MEDS: Promethazine DM 6.25 mg-15 mg/5 ml Syrup PO PRN (11:52)
--- NOTE | 2016-12-04 15:44 | MRI ---
PROCEDURE: MRI BRAIN WITHOUT CONTRAST HISTORY: RECENT STROKE COMPARISON: Prior head CT 12/03/2016. TECHNIQUE: Multiplanar, multisequence MR images of the brain were obtained without intravenous contrast enhancement. FINDINGS: HEMORRHAGE: None DWI: No evidence of an acute or early subacute infarction. BRAIN PARENCHYMA: No mass effect or edema. No atrophy. Trace chronic microvascular ischemic changes noted. VENTRICLES: Unremarkable. No hydrocephalus. CRANIUM: Unremarkable. ORBITS: Grossly unremarkable. PARANASAL SINUSES/MASTOIDS: Limited sinus disease appreciated bilateral ethmoid, frontal and maxillary sinuses as well as the right greater than left sphenoid sinuses. VASCULAR SYSTEM: Skull base flow voids intact. OTHER FINDINGS: None. IMPRESSION: Trace chronic microangiopathy is appreciated however there is no acute or cerebrum brain infarction or other acute finding identified throughout the examination intracranially. Incidental note is made of limited sinus disease as discussed above. .
[2016-12-04 16:01] VITALS: TEMP 98.1
[2016-12-04 18:48] LABS: CK-MB 0.47 ng/mL (0.0-3.38)
--- NOTE | 2016-12-05 06:29 | CP.PCM.PN ---
Subjective - Date & Time of Evaluation Date of Evaluation: 12/05/16 Time of Evaluation: 06:29 Objective - Vital Signs/Intake and Output Vital Signs (last 24 hours): Temp Pulse Resp BP Pulse Ox 97.5 F L 54 L 20 113/66 95 12/04/16 23:20 12/05/16 04:15 12/04/16 23:20 12/04/16 23:20 12/04/16 23:20 - Medications Medications: Current Medications Albuterol (Ventolin Hfa 90 Mcg/Actuation (8 G)) 2 puff INH RQ6 PRN PRN Reason: Shortness of Breath Amlodipine Besylate (Norvasc) 10 mg PO DAILY [facility] Last Admin: 12/04/16 11:50 Dose: 10 mg Aspirin (Aspirin Chewable) 81 mg PO DAILY [facility] Last Admin: 12/04/16 11:49 Dose: 81 mg Carvedilol (Coreg) 6.25 mg PO BID [facility] Last Admin: 12/04/16 17:30 Dose: Not Given Clopidogrel Bisulfate (Plavix) 75 mg PO DAILY [facility] Last Admin: 12/04/16 11:50 Dose: 75 mg Enoxaparin Sodium (Lovenox) 40 mg SC DAILY [facility] Last Admin: 12/04/16 11:49 Dose: 40 mg Famotidine (Pepcid) 20 mg PO BID [facility] Last Admin: 12/04/16 17:33 Dose: 20 mg Glipizide (Glucotrol) 5 mg PO BID [facility] Last Admin: 12/04/16 17:30 Dose: Not Given Losartan Potassium (Cozaar) 25 mg PO DAILY [facility] Last Admin: 12/04/16 11:49 Dose: 25 mg Metformin HCl (Glucophage) 1,000 mg PO BID [facility] Last Admin: 12/04/16 17:30 Dose: Not Given Oxycodone/Acetaminophen (Percocet 5/325 Mg Tab) 2 tab PO Q6H PRN PRN Reason: Pain, severe (8-10) Stop: 12/06/16 19:44 Promethazine HCl/Dextromethorphan (Phenergan Dm Syrup) 5 ml PO Q6H PRN PRN Reason: Cough Last Admin: 12/04/16 11:52 Dose: 5 ml Rosuvastatin Calcium (Crestor) 10 mg PO HS [facility] Last Admin: 12/04/16 22:10 Dose: 10 mg Zolpidem Tartrate (Ambien) 5 mg PO HS PRN PRN Reason: Insomnia Last Admin: 12/04/16 22:29 Dose: 5 mg - Labs Labs: 12/04/16 07:42 12/04/16 07:42 PT 11.9 SECONDS (9.7-12.2) 12/03/16 13:54 INR 1.1 12/03/16 13:54 APTT 28 SECONDS (21-34) 12/03/16 13:54
[2016-12-05 08:40] LABS: BASO % 0.4 % (0.0-2.0); EOS # 0.4 K/uL (0.0-0.7); EOS % 3.4 % (0.0-4.0); HEMOGLOBIN 14.1 g/dL (11.0-16.0); LYMPH # 3.9 K/uL (1.0-4.3); LYMPH % 37.6 % (20.0-40.0); MEAN CELL VOLUME 90.3 fL (81.0-99.0); MEAN CORPUSCULAR HEMOGLOBIN 29.5 pg (27.0-31.0); MEAN CORPUSCULAR HGB CONC 32.7 g/dL (33.0-37.0); MEAN PLATELET VOLUME 8.2 fL (7.2-11.7); MONO # 0.5 K/uL (0.0-0.8); MONO % 5.3 % (0.0-10.0); NEUT # 5.5 K/uL (1.8-7.0); NEUT % 53.3 % (50.0-75.0); RBC 4.79 Mil/uL (3.80-5.20); RED CELL DISTRIBUTION WIDTH 13.3 % (11.5-14.5); WHITE BLOOD COUNT 10.3 K/uL (4.8-10.8)
[2016-12-05 08:55] LABS: ALB/GLOB RATIO 1.1 (1.0-2.1); AST/SGOT 26 U/L (14-36); BLOOD UREA NITROGEN 20 mg/dL (7-17); GFR AFRICAN-AMERICAN > 60; GFR NON-AFRICAN AMERICAN > 60
[2016-12-05 08:56] LABS: ALT/SGPT 37 U/L (9-52); CALCIUM 9.4 mg/dl (8.6-10.4); MAGNESIUM 1.9 mg/dL (1.6-2.3)
[2016-12-05] MEDS: Enoxaparin 40 mg Syringe SC SCH (10:22)
[2016-12-05 12:09] VITALS: PULSE 64
[2016-12-05 12:18] VITALS: BP 121/71; RESP 17
[2016-12-05 12:43] VITALS: O2SAT 98
--- NOTE | 2016-12-05 14:26 | CP.PCM.PN ---
Subjective - Date & Time of Evaluation Date of Evaluation: 12/05/16 Time of Evaluation: 14:23 - Subjective Subjective: 61 Y/O FEMALE SEEN AND EXAMINED TODAY BY DR Nabila ROA PMHX: CVA, HTN. DM ADMITTED FOR BLE WEAKNESS CT HEAD MRI BRAIN CAROTID DOPPLER: MILD DISEASE PT DENIES ANY CP, SOB, WEAKNESS NO NEURO DEFICIT, SPEECH CLEAR, RESP EASY AND UNLABORED, NAD INC CRESTOR [address] Nabila ROA F/U W/PMD IN 2-3 DAYS Objective - Vital Signs/Intake and Output Vital Signs (last 24 hours): Temp Pulse Resp BP Pulse Ox 98.1 F 64 17 121/71 98 12/05/16 07:10 12/05/16 07:10 12/05/16 07:10 12/05/16 07:10 12/05/16 07:10 Intake and Output: 12/05/16 12/05/16 06:59 18:59 Intake Total 120 Balance 120 - Medications Medications: Current Medications Albuterol (Ventolin Hfa 90 Mcg/Actuation (8 G)) 2 puff INH RQ6 PRN PRN Reason: Shortness of Breath Amlodipine Besylate (Norvasc) 10 mg PO DAILY [facility] Last Admin: 12/05/16 10:21 Dose: 10 mg Aspirin (Aspirin Chewable) 81 mg PO DAILY [facility] Last Admin: 12/05/16 10:21 Dose: 81 mg Carvedilol (Coreg) 6.25 mg PO BID [facility] Last Admin: 12/05/16 10:21 Dose: 6.25 mg Clopidogrel Bisulfate (Plavix) 75 mg PO DAILY [facility] Last Admin: 12/05/16 10:21 Dose: 75 mg Enoxaparin Sodium (Lovenox) 40 mg SC DAILY [facility] Last Admin: 12/05/16 10:22 Dose: 40 mg Famotidine (Pepcid) 20 mg PO BID [facility] Last Admin: 12/05/16 10:21 Dose: 20 mg Glipizide (Glucotrol) 5 mg PO BID [facility] Last Admin: 12/05/16 10:21 Dose: 5 mg Losartan Potassium (Cozaar) 25 mg PO DAILY [facility] Last Admin: 12/05/16 10:20 Dose: 25 mg Metformin HCl (Glucophage) 1,000 mg PO BID [facility] Last Admin: 12/05/16 10:21 Dose: 1,000 mg Oxycodone/Acetaminophen (Percocet 5/325 Mg Tab) 2 tab PO Q6H PRN PRN Reason: Pain, severe (8-10) Stop: 12/06/16 19:44 Promethazine HCl/Dextromethorphan (Phenergan Dm Syrup) 5 ml PO Q6H PRN PRN Reason: Cough Last Admin: 12/04/16 11:52 Dose: 5 ml Rosuvastatin Calcium (Crestor) 10 mg PO HS [facility] Last Admin: 12/04/16 22:10 Dose: 10 mg Zolpidem Tartrate (Ambien) 5 mg PO HS PRN PRN Reason: Insomnia Last Admin: 12/04/16 22:29 Dose: 5 mg - Labs Labs: 12/05/16 08:17 12/05/16 08:17 PT 11.9 SECONDS (9.7-12.2) 12/03/16 13:54 INR 1.1 12/03/16 13:54 APTT 28 SECONDS (21-34) 12/03/16 13:54
--- NOTE | 2016-12-05 14:41 | CP.PCM.PN ---
Subjective - Date & Time of Evaluation Date of Evaluation: 12/05/16 Time of Evaluation: 11:00 - Subjective Subjective: clinically same Objective - Vital Signs/Intake and Output Vital Signs (last 24 hours): Temp Pulse Resp BP Pulse Ox 98.1 F 64 17 121/71 98 12/05/16 07:10 12/05/16 07:10 12/05/16 07:10 12/05/16 07:10 12/05/16 07:10 Intake and Output: 12/05/16 12/05/16 06:59 18:59 Intake Total 120 Balance 120 - Medications Medications: Current Medications Albuterol (Ventolin Hfa 90 Mcg/Actuation (8 G)) 2 puff INH RQ6 PRN PRN Reason: Shortness of Breath Amlodipine Besylate (Norvasc) 10 mg PO DAILY [facility] Last Admin: 12/05/16 10:21 Dose: 10 mg Aspirin (Aspirin Chewable) 81 mg PO DAILY [facility] Last Admin: 12/05/16 10:21 Dose: 81 mg Carvedilol (Coreg) 6.25 mg PO BID [facility] Last Admin: 12/05/16 10:21 Dose: 6.25 mg Clopidogrel Bisulfate (Plavix) 75 mg PO DAILY [facility] Last Admin: 12/05/16 10:21 Dose: 75 mg Enoxaparin Sodium (Lovenox) 40 mg SC DAILY [facility] Last Admin: 12/05/16 10:22 Dose: 40 mg Famotidine (Pepcid) 20 mg PO BID [facility] Last Admin: 12/05/16 10:21 Dose: 20 mg Glipizide (Glucotrol) 5 mg PO BID [facility] Last Admin: 12/05/16 10:21 Dose: 5 mg Losartan Potassium (Cozaar) 25 mg PO DAILY [facility] Last Admin: 12/05/16 10:20 Dose: 25 mg Metformin HCl (Glucophage) 1,000 mg PO BID [facility] Last Admin: 12/05/16 10:21 Dose: 1,000 mg Oxycodone/Acetaminophen (Percocet 5/325 Mg Tab) 2 tab PO Q6H PRN PRN Reason: Pain, severe (8-10) Stop: 12/06/16 19:44 Promethazine HCl/Dextromethorphan (Phenergan Dm Syrup) 5 ml PO Q6H PRN PRN Reason: Cough Last Admin: 12/04/16 11:52 Dose: 5 ml Rosuvastatin Calcium (Crestor) 10 mg PO HS [facility] Last Admin: 12/04/16 22:10 Dose: 10 mg Zolpidem Tartrate (Ambien) 5 mg PO HS PRN PRN Reason: Insomnia Last Admin: 12/04/16 22:29 Dose: 5 mg - Labs Labs: 12/05/16 08:17 12/05/16 08:17 PT 11.9 SECONDS (9.7-12.2) 12/03/16 13:54 INR 1.1 12/03/16 13:54 APTT 28 SECONDS (21-34) 12/03/16 13:54
--- NOTE | 2016-12-07 13:18 | VASCLAB ---
PROCEDURE: HISTORY: Bruit COMPARISON: None available. TECHNIQUE: Grayscale and duplex Doppler evaluation of the cervical carotid and vertebral arteries were performed. The common carotid, carotid bifurcations and cervical Internal Carotid Artery (ICA) and proximal External Carotid Artery (ECA) were evaluated. The vertebral arteries were evaluated for gross patency and flow direction. Report prepared by Edison Mccormack, BS, RVT FINDINGS: RIGHT CAROTID ARTERIES: 1. Common Carotid Artery: No significant focal plaque formation of the right common carotid artery. Maximum Peak Systolic velocity: 71 cm/sec: End-diastolic velocity 20 cm/sec. 2. Carotid Bifurcation: plaque formation. Maximum Peak Systolic velocity: 61 cm/sec: End-diastolic velocity 17 cm/sec. 3. Internal Carotid Artery: Plaque description: 3.1. Proximal Segment: Peak systolic velocity 73 cm/sec: End-diastolic velocity 18 cm/sec - % stenosis 0-15% 3.2. Middle Segment: Peak systolic velocity 55 cm/sec: End-diastolic velocity 19 cm/sec - % stenosis 0-15% 3.3. Distal Segment: Peak systolic velocity 45 cm/sec: End-diastolic velocity 15 cm/sec - % stenosis 0-15% 4. External Carotid Artery: No significant focal plaque formation. Peak systolic velocity 91 cm/sec 5. ICA/CCA Ratio: 1.0 LEFT CAROTID ARTERIES: 1. Common Carotid Artery: No significant focal plaque formation of the left common carotid artery. Maximum Peak Systolic velocity: 75 cm/sec: End-diastolic velocity 20 cm/sec. 2. Carotid Bifurcation: plaque formation. Maximum Peak Systolic velocity: 58 cm/sec: End-diastolic velocity 16 cm/sec. 3. Internal Carotid Artery: Plaque description: 3.1. Proximal Segment: Peak systolic velocity 52 cm/sec: End-diastolic velocity 19 cm/sec - % stenosis 0-15% 3.2. Middle Segment: Peak systolic velocity 79 cm/sec: End-diastolic velocity 30 cm/sec - % stenosis 0-15% 3.3. Distal Segment: Peak systolic velocity 49 cm/sec: End-diastolic velocity 19 cm/sec - % stenosis 0-15% 4. External Carotid Artery: No significant focal plaque formation. Peak systolic velocity 82 cm/sec 5. ICA/CCA Ratio: 1.0 VERTEBRAL ARTERIES: 1. Right Vertebral Artery: The right vertebral artery flow direction is antegrade. 2. Left Vertebral Artery: The left vertebral artery flow direction is antegrade. OTHER FINDINGS: 1. Right Brachial Blood pressure: 120 mmHg. 2. Left Brachial Blood pressure: 122 mmHg. IMPRESSION: RIGHT: Duplex scan does not suggest hemodynamically significant stenosis of the right extracranial carotid arteries. LEFT: Duplex scan does not suggest hemodynamically significant stenosis of the left extracranial carotid arteries.
--- NOTE | 2016-12-14 11:11 | EEG ---
DATE: 12/04/2016 This is a resting electroencephalogram of awake and drowsy adult. During this study photic stimulation was performed. Hyperventilation was not performed. The resting electroencephalogram consists of 20-30 microvolt, 9-11 Hz alpha activity seen at parietal and occipital leads. Anteriorly fast activity superimposed with 2-3 Hz delta activity seen at frontal and central leads. The photic stimulation did not evoke driving response noted at 2-20 Hz. IMPRESSION: This is a normal electroencephalogram of awake and drowsy adult. During the study neither electroencephalographic paroxysmal activities nor focal slowing noted. Zack Sharma MD
--- NOTE | 2016-12-15 13:56 | CP.PCM.CON ---
History of Present Illness - History of Present Illness History of Present Illness: Transient ischemic attack Patient was brought in to [facility] for___ Past Patient History - Infectious Disease Hx of Infectious Diseases: None - Past Medical History & Family History Past Medical History?: Yes - Past Social History Smoking Status: Never Smoked - CARDIAC Hx Hypertension: Yes - PULMONARY Hx Respiratory Disorders: No - NEUROLOGICAL Hx Neurological Disorder: Yes HX Cerebrovascular Accident: Yes (2015 and 2016) Other/Comment: brain aneurysm - HEENT Hx HEENT Problems: Yes Other/Comment: hx of throat ca - RENAL Hx Chronic Kidney Disease: No - ENDOCRINE/METABOLIC Hx Diabetes Mellitus Type 2: Yes - HEMATOLOGICAL/ONCOLOGICAL Hx Blood Disorders: Yes Hx Cancer: Yes (THROAT CA) - INTEGUMENTARY Hx Dermatological Problems: No - MUSCULOSKELETAL/RHEUMATOLOGICAL Hx Musculoskeletal Disorders: No Hx Falls: Yes - GASTROINTESTINAL Hx Gastrointestinal Disorders: No - GENITOURINARY/GYNECOLOGICAL Hx Genitourinary Disorders: No - PSYCHIATRIC Hx Anxiety: Yes Hx Depression: Yes Hx Substance Use: No - SURGICAL HISTORY Hx Surgeries: Yes Hx Section: Yes (2x) - ANESTHESIA Hx Anesthesia: Yes Hx Anesthesia Reactions: No Hx Malignant Hyperthermia: No Has any member of the family had a problem w/ anesthesia?: No Meds Home Medications: Home Medication List Medication Instructions Recorded Confirmed Type Albuterol HFA [Ventolin HFA 90 2 puff INH RQ6 PRN inhaler 12/05/16 Rx mcg/actuation (8 g)] Carvedilol [Coreg] 6.25 mg PO BID tab 12/05/16 Rx Clopidogrel [Plavix] 75 mg PO DAILY tab 12/05/16 Rx Famotidine [Pepcid] 20 mg PO BID tab 12/05/16 Rx GlipiZIDE [Glucotrol] 5 mg PO BID tab 12/05/16 Rx Losartan [Cozaar] 25 mg PO DAILY tab 12/05/16 Rx Rosuvastatin Calcium [Crestor] 40 mg PO HS #30 tablet 12/05/16 Rx amLODIPine [Norvasc] 10 mg PO DAILY tab 12/05/16 Rx metFORMIN [glucOPHAGE] 1,000 mg PO BID tab 12/05/16 Rx Allergies/Adverse Reactions: Allergies Allergy/AdvReac Type Severity Reaction Status Date / Time No Known Allergies Allergy Verified 12/03/16 13:47 Results - Vital Signs Recent Vital Signs: Last Vital Signs Temp 98.1 F 12/05/16 07:10 Pulse 64 12/05/16 07:10 Resp 17 12/05/16 07:10 BP 121/71 12/05/16 07:10 Pulse Ox 98 12/05/16 07:10 - Labs Result Diagrams: 12/05/16 08:17 12/05/16 08:17
== END 2016-12-05 14:47 | disposition home or self-care (01) | DRG 948 ==
LOC: C.ER 13:33 → C.6T 16:14
PROVIDERS: ADMIT Internal Medicine Nephrology; ATTEND Internal Medicine Nephrology
DX: R53.1 Weakness (principal); R42 Dizziness and giddiness; R00.1 Bradycardia, unspecified; I10 Essential (primary) hypertension; E11.9 Type 2 diabetes mellitus without complications; E78.5 Hyperlipidemia, unspecified; E78.00 Pure hypercholesterolemia, unspecified; Z79.82 Long term (current) use of aspirin; Z79.84 Long term (current) use of oral hypoglycemic drugs; Z85.819 Personal history of malignant neoplasm of unspecified site of lip, oral cavity, and pharynx; Z86.73 Personal history of transient ischemic attack (TIA), and cerebral infarction without residual deficits

== ENCOUNTER 2017-09-22 13:06 | Emergency (ER) | payer MEDICARE, OTHER ==
[2017-09-22] MEDS ORDERED: Sodium Chloride 0.9% 1,000 ML IV ONE (13:37)
[2017-09-22] MEDS ORDERED: Iohexol 240 (50 ml) PO STA (13:37)
[2017-09-22 13:54] LABS: BASO % 0.3 % (0.0-2.0); EOS # 0.3 K/uL (0.0-0.7); EOS % 2.8 % (0.0-4.0); HEMOGLOBIN 13.1 g/dL (11.0-16.0); LYMPH # 3.5 K/uL (1.0-4.3); LYMPH % 33.1 % (20.0-40.0); MEAN CELL VOLUME 90.5 fL (81.0-99.0); MEAN CORPUSCULAR HGB CONC 34.3 g/dL (33.0-37.0); MEAN PLATELET VOLUME 8.8 fL (7.2-11.7); MONO # 0.7 K/uL (0.0-0.8); MONO % 6.6 % (0.0-10.0); NEUT % 57.2 % (50.0-75.0); RBC 4.22 Mil/uL (3.80-5.20); RED CELL DISTRIBUTION WIDTH 13.1 % (11.5-14.5); WHITE BLOOD COUNT 10.5 K/uL (4.8-10.8)
[2017-09-22] MEDS ORDERED: Sodium Chloride 0.9% 1,000 ML ONE (13:54)
[2017-09-22] MEDS ORDERED: Morphine 4 MG/ML VIAL ONE (13:54)
[2017-09-22] MEDS ORDERED: Iohexol 240 (50 ml) ONE (13:54)
--- NOTE | 2017-09-22 13:55 | C.PDOC ---
History Of Present Illness 62 year old female presents to the ED for evaluation of abdominal pain which began earlier today. Patient states she was asymptomatic upon waking up but developed sharp left flank and left lower quadrant abdominal pain shortly after. Patient states her pain is exacerbated by movement and taking deep breaths. She denies fever, chills, nausea, vomiting, changes in bowel habits, or history of similar symptoms in the past. Time Seen by Provider: 09/22/17 13:15 Chief Complaint (Nursing): Abdominal Pain History Per: Patient History/Exam Limitations: no limitations Onset/Duration Of Symptoms: Hrs Current Symptoms Are (Timing): Still Present Location Of Pain/Discomfort: LLQ Radiation Of Pain To:: None, Flank (left ) Quality Of Discomfort: Sharp, "Pain" Associated Symptoms: denies: Nausea, Vomiting, Diarrhea, Constipation Exacerbating Factors: Movement, Deep Breaths Additional History Per: Patient Abnormal Vaginal Bleeding: No Past Medical History Reviewed: Historical Data, Nursing Documentation, Vital Signs Vital Signs: Last Vital Signs Temp 98.7 F 09/22/17 13:21 Pulse 61 09/22/17 16:47 Resp 18 09/22/17 16:47 BP 127/79 09/22/17 16:47 Pulse Ox 99 09/22/17 16:47 - Medical History PMH: Anxiety, Depression, Diabetes, HTN, Hyperlipidemia, Kidney Stones, Malignancy (throat CA with chemo) Denies: Chronic Kidney Disease Surgical History: Family History: States: Unknown Family Hx - Social History Hx Tobacco Use: No Hx Alcohol Use: No Hx Substance Use: No - Immunization History Hx Tetanus Toxoid Vaccination: No Hx Influenza Vaccination: Yes Hx Pneumococcal Vaccination: No Review Of Systems Gastrointestinal: Positive for: Abdominal Pain (left lower quadrant ). Negative for: Nausea, Vomiting, Diarrhea, Constipation Musculoskeletal: Positive for: Other (left flank pain ) Physical Exam - Physical Exam Appears: Non-toxic, No Acute Distress, Other (comfortable, sitting quietly on stretcher ) Skin: Normal Color, Warm, Dry Head: Atraumatic, Normacephalic Eye(s): bilateral: Normal Inspection Oral Mucosa: Moist Neck: Supple Chest: Symmetrical, No Deformity, No Tenderness Cardiovascular: Rhythm Regular, No Murmur Respiratory: Normal Breath Sounds, No Rales, No Rhonchi, No Wheezing Gastrointestinal/Abdominal: Soft, Tenderness (to left upper and lower quadrants on palpation ), Guarding (mild ), No Rebound, No Other (rigidity ) Back: No CVA Tenderness Extremity: Normal ROM, Capillary Refill (less than 2 seconds ) Neurological/Psych: Oriented x3, Normal Speech, Normal Cognition ED Course And Treatment - Laboratory Results Result Diagrams: 09/22/17 13:46 09/22/17 13:46 Lab Interpretation: Abnormal O2 Sat by Pulse Oximetry: 97 (on RA) Pulse Ox Interpretation: Normal - CT Scan/US CT abdomen and pelvis Other Rad Studies (CT/US): Read By Radiologist, Radiology Report Reviewed CT/US Interpretation: Accession No. : [id number]. Patient Name / ID : PHANI ANTHONY / [id number]. Exam Date : 09/22/2017 16:11:43 ( Approved ). Study Comment : Sex / Age : F / 62Y. Creator : Meaghan Lau. Dictator : Miguel Meehan MD. Director Patient : Rural Carrier : Miguel Meehan MD. Approver2 : Report Date : 09/22/2017 16:40:37. My Comment : . PROCEDURE: CT Abdomen and Pelvis with contrast. HISTORY: abd pain. COMPARISON: None. TECHNIQUE: Contrast dose: 100 mL Visipaque 320. Radiation dose: Total exam DLP = 731.70 mGy-cm. This CT exam was performed using one or more of the following dose reduction techniques: Automated exposure control, adjustment of the mA and/or kV according to patient size, and/or use of iterative reconstruction technique. FINDINGS: LOWER THORAX: Unremarkable. LIVER: Normal size, contour and attenuation. Intrahepatic biliary dilatation, mild. No mass. Correlate with laboratory evaluation. GALLBLADDER AND BILE DUCTS: Cholecystectomy. Dilated common bile duct up to 9 mm consistent with prior cholecystectomy. PANCREAS: Unremarkable. No gross lesion or ductal dilatation. SPLEEN: Unremarkable. ADRENALS: Unremarkable. No mass. KIDNEYS AND URETERS: Mild right hydroureteronephrosis. 2 mm calculus in the dependent right bladder, likely recently passed stone. No left hydronephrosis or hydroureter. 2 mm nonobstructing calculus in the lower pole of both kidneys. VASCULATURE: Unremarkable. No aortic aneurysm. BOWEL: Sigmoid diverticulosis. No evidence of diverticulitis. No bowel obstruction. No other abnormal bowel loops. APPENDIX: Normal appendix. PERITONEUM: Unremarkable. No free fluid. No free air. LYMPH NODES: Unremarkable. No enlarged lymph nodes. BLADDER: 2 mm dependent calculus right bladder base. No mural thickening. No intraluminal mass. REPRODUCTIVE: Unremarkable postmenopausal uterus. BONES: No acute fracture. OTHER FINDINGS: None. IMPRESSION: 2 mm dependent calculus right bladder base. Mild right hydroureteronephrosis. Likely recently passed urinary calculus. 2 mm nonobstructing calculus lower pole of the right and left kidney. Cholecystectomy. Mild intrahepatic and extrahepatic biliary dilatation. Progress Note: Bloodwork, urinalysis, CT A/P ordered and reviewed. Morphine IVP and IV Fluids administered. Reevaluation Time: 17:23 Reassessment Condition: Improved Disposition Counseled Patient/Family Regarding: Studies Performed, Diagnosis, Need For Followup, Rx Given - Disposition Disposition: HOME/ ROUTINE Disposition Time: 17:27 Condition: IMPROVED Prescriptions: Naproxen [Naprosyn] 1 tab PO BID PRN #25 tab PRN Reason: Pain Instructions: Flank Pain Forms: [facility] (Turkmen) - Clinical Impression Clinical Impression: Acute flank pain - Scribe Statement The provider has reviewed the documentation as recorded by the Scribe (Mali Smith) Provider Attestation: All medical record entries made by the Rosarioibe were at my direction and personally dictated by me. I have reviewed the chart and agree that the record accurately reflects my personal performance of the history, physical exam, medical decision making, and the department course for this patient. I have also personally directed, reviewed, and agree with the discharge instructions and disposition.
[2017-09-22 14:13] LABS: ALB/GLOB RATIO 1.2 (1.0-2.1); ALBUMIN 4.1 g/dL (3.5-5.0); ALT/SGPT 51 U/L (9-52); AST/SGOT 30 U/L (14-36); BLOOD UREA NITROGEN 17 mg/dL (7-17); CALCIUM 9.1 mg/dl (8.6-10.4); GFR AFRICAN-AMERICAN > 60; GFR NON-AFRICAN AMERICAN > 60
[2017-09-22 14:18] LABS: SQUAMOUS EPITHIAL < 1 /hpf (0-5); URINE AMORPHOUS SEDIMENT RARE /ul (<OCC); URINE BACTERIA RARE (<OCC); URINE BILIRUBIN NEGATIVE (NEGATIVE); URINE BLOOD 3+ (NEGATIVE); URINE CLARITY Hazy (Clear); URINE COLOR Yellow (YELLOW); URINE GLUCOSE (UA) NORMAL (Normal); URINE LEUKOCYTE ESTERASE NEG Leu/uL (Negative); URINE PROTEIN NEGATIVE (NEGATIVE); URINE UROBILINOGEN NORMAL mg/dL (0.2-1.0)
[2017-09-22] MEDS ORDERED: Iodixanol 320 MG/ML 100 ML BOTTLE IV ONE (15:00)
--- NOTE | 2017-09-22 17:17 | CT ---
PROCEDURE: CT Abdomen and Pelvis with contrast HISTORY: abd pain COMPARISON: None. TECHNIQUE: Contrast dose: 100 mL Visipaque 320 Radiation dose: Total exam DLP = 731.70 mGy-cm. This CT exam was performed using one or more of the following dose reduction techniques: Automated exposure control, adjustment of the mA and/or kV according to patient size, and/or use of iterative reconstruction technique. FINDINGS: LOWER THORAX: Unremarkable. LIVER: Normal size, contour and attenuation. Intrahepatic biliary dilatation, mild. No mass. Correlate with laboratory evaluation. GALLBLADDER AND BILE DUCTS: Cholecystectomy. Dilated common bile duct up to 9 mm consistent with prior cholecystectomy. PANCREAS: Unremarkable. No gross lesion or ductal dilatation. SPLEEN: Unremarkable. ADRENALS: Unremarkable. No mass. KIDNEYS AND URETERS: Mild right hydroureteronephrosis. 2 mm calculus in the dependent right bladder, likely recently passed stone. No left hydronephrosis or hydroureter. 2 mm nonobstructing calculus in the lower pole of both kidneys. VASCULATURE: Unremarkable. No aortic aneurysm. BOWEL: Sigmoid diverticulosis. No evidence of diverticulitis. No bowel obstruction. No other abnormal bowel loops. APPENDIX: Normal appendix PERITONEUM: Unremarkable. No free fluid. No free air. LYMPH NODES: Unremarkable. No enlarged lymph nodes. BLADDER: 2 mm dependent calculus right bladder base. No mural thickening. No intraluminal mass. REPRODUCTIVE: Unremarkable postmenopausal uterus. BONES: No acute fracture. OTHER FINDINGS: None. IMPRESSION: 2 mm dependent calculus right bladder base. Mild right hydroureteronephrosis. Likely recently passed urinary calculus. 2 mm nonobstructing calculus lower pole of the right and left kidney. Cholecystectomy. Mild intrahepatic and extrahepatic biliary dilatation.
[2017-09-22 17:27] VITALS: O2SAT 97
[2017-09-22 17:54] VITALS: BP 133/75; PULSE 99; RESP 20; TEMP 97.8
== END 2017-09-22 17:53 | disposition home or self-care (01) ==
LOC: C.ER 13:06
DX: R10.9 Unspecified abdominal pain (principal); I10 Essential (primary) hypertension; E11.9 Type 2 diabetes mellitus without complications; E78.5 Hyperlipidemia, unspecified
CPT/HCPCS: 74177; 80053; 81001; 82948; 85025; 96361; 96374; 99284; J2270; J7030; Q9966; Q9967